=== PATIENT | male | born 1980 | race Caucasian/White ===

== ENCOUNTER 2018-12-23 16:44 | Emergency (ER) | payer OTHER, BC ==
[~2018-12-23] VITALS: Ht 165.1 cm; Wt 77.1 kg
[2018-12-23 16:44] VITALS: BP 117/77
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
[2018-12-23] MEDS ORDERED: LORazepam 1 MG TAB PO ONE (17:35)
[2018-12-23] MEDS ORDERED: HYDROcodone/APAP 5/325 MG 1 TAB TAB PO ONE (17:35)
[2018-12-23] MEDS ORDERED: BACITRACIN OINT 500 UNITS/GM PKT TP ONE (17:40)
--- NOTE | 2018-12-23 18:24 | NUR ---
PT RETURNED FROM CT AND PLACED IN BED 8.
--- NOTE | 2018-12-23 19:07 | NUR ---
Pt report given to JOSSIE HERR. Transfer of care at this time.
--- NOTE | 2018-12-23 19:08 | NUR ---
RECEIVED REPORT FROM CARMENZA BELLAMY. TRANSFER OF CARE AT THIS TIME
[2018-12-23 19:12] LABS: BASOPHILS # (AUTO) 0.1 K/uL (0.00-0.22); BASOPHILS % (AUTO) 0.5 % (0.0-2.0); EOSINOPHILS # (AUTO) 0.2 K/uL (0-0.4); EOSINOPHILS % (AUTO) 0.9 % (0.0-4.0); HEMATOCRIT 44.3 % (36-52); HEMOGLOBIN 14.7 g/dL (12.0-18.0); LYMPHOCYTES # (AUTO) 1.4 K/uL (2.0-11.5); LYMPHOCYTES % (AUTO) 7.4 % (20.5-51.1); MEAN CORPUSCULAR HEMOGLOBIN 30 pg (27-31); MEAN CORPUSCULAR HGB CONC 33 g/dL (33-37); MEAN CORPUSCULAR VOLUME 91.6 fL (80-94); MONOCYTES # (AUTO) 0.9 K/uL (0.8-1.0); MONOCYTES % (AUTO) 4.6 % (1.7-9.3); NEUTROPHILS # (AUTO) 16.2 K/uL (1.8-7.7); NEUTROPHILS % (AUTO) 86.6 % (42.2-75.2); PLATELET COUNT (AUTO) 381 K/uL (140-450); RED BLOOD CELL COUNT(AUTO) 4.84 MIL/uL (4.20-6.10); RED CELL DISTRIBUTION WIDTH 12.5 % (11.6-13.7); WHITE BLOOD COUNT (AUTO) 18.8 K/uL (4.8-10.8)
[2018-12-23 19:33] LABS: APPEARANCE,URINE CLEAR (CLEAR); BILIRUBIN,URINE 1+ (NEGATIVE); BLOOD, URINE NEGATIVE (NEGATIVE); COLOR,URINE YELLOW (YELLOW); LEUKOCYTE ESTERASE ,URINE NEGATIVE (NEGATIVE); NITRITE, URINE NEGATIVE (NEGATIVE); PH,URINE 6.5 (5.0-9.0); UGLUCOSE NEGATIVE (NEGATIVE)
[2018-12-23 19:43] LABS: ANION GAP 14.2 (8-16); CARBON DIOXIDE 25.2 mmol/L (21-32); CREATININE 1.1 mg/dL (0.7-1.3); POTASSIUM 3.4 mmol/L (3.5-5.1); TOTAL BILIRUBIN 0.6 mg/dL (0.0-1.0)
--- NOTE | 2018-12-23 19:48 | NUR ---
Dr. Hopkins examining patient.
--- NOTE | 2018-12-23 19:49 | NUR ---
PT RESTING IN BED WITH EYES CLOSED. VISIBLE RISE AND FALL OF CHEST. VSS. WILL CONTINUE TO MONITOR.
[2018-12-23 20:06] LABS: BARBITURATE, URINE NEG. ng/ml (NEG <=200); BENZODIAZEPINE, URINE NEG. ng/mL (NEG <=200); CANNABINOID, URINE POS. ng/mL (NEG <=50); COCAINE, URINE NEG. ng/mL (NEG <=300); OPIATE, URINE NEG. ng/mL (NEG <=2000); PHENCYCLIDINE SCREEN,URINE NEG. ng/mL (NEG <=25)
--- NOTE | 2018-12-23 20:20 | NUR ---
RICARDA MORALES AT BEDSIDE.
--- NOTE | 2018-12-23 20:57 | NUR ---
PT TO CT VIA WHEELCHAIR.
--- NOTE | 2018-12-23 21:17 | NUR ---
PT RETURNED FROM CT VIA WHEELCHAIR.
--- NOTE | 2018-12-23 22:48 | NUR ---
PT HAS NO C/O PAIN AT THIS TIME. RR EVEN AND UNLABORED, VISIBLE RISE AND FALL OF CHEST. PT EASILY AROUSABLE FROM SLEEP. FAMILY AT BEDSIDE. VSS. WILL CONTINUE TO MONITOR.
[2018-12-23 23:38] VITALS: BP 124/74
--- NOTE | 2018-12-23 23:38 | NUR ---
Patient discharged with v/s stable. Written and verbal after care instructions given and explained. Patient alert, oriented and verbalized understanding of instructions. Ambulatory with steady gait. All questions addressed prior to discharge. ID band removed. Patient advised to follow up with PMD. Rx of FLEXERIL AND IBURPROFEN given. Patient educated on indication of medication including possible reaction and side effects. Opportunity to ask questions provided and answered. ACCOMPANIED BY MOTHER AND GIRLFRIEND.
== END 2018-12-23 23:38 | disposition home or self-care (01) ==
LOC: MED 16:44
DX: S30.1XXA Contusion of abdominal wall, initial encounter (principal); S00.211A Abrasion of right eyelid and periocular area, initial encounter; S09.90XA Unspecified injury of head, initial encounter; F41.9 Anxiety disorder, unspecified; F12.10 Cannabis abuse, uncomplicated; F15.10 Other stimulant abuse, uncomplicated; V89.2XXA Person injured in unspecified motor-vehicle accident, traffic, initial encounter; Y93.89 Activity, other specified; Y92.89 Other specified places as the place of occurrence of the external cause; Y99.8 Other external cause status
CPT/HCPCS: 36415; 70450; 73090; 74176; 74177; 80053; 80305; 81003; 83690; 85025; 90715; Q0092; Q9967